=== PATIENT | female | born 1990 | race Caucasian/White ===

== ENCOUNTER 2017-02-05 00:31 | Emergency (ER) | payer MEDICAID ==
[~2017-02-05] VITALS: Ht 162.6 cm; Wt 76.0 kg
[2017-02-05 00:33] VITALS: Ht 162.6 cm; Wt 76.0 kg
--- NOTE | 2017-02-05 01:00 | ERA ---
ER Documentation Chief Complaint Date/Time DATE: 02/05/17 TIME: 01:00 Chief Complaint upper abd painx 1 week HPI The patient is a 26-year-old female, presenting to the ER because of epigastric abdominal pain for 1 week, worse with food. She was seen in the ER about 3 days ago and was discharged. She denies fever, chills, neck pain, chest pain, dyspnea, nausea, vomiting, dysuria, diarrhea, constipation She does not smoke or drink Past medical history: None Past surgical history: One ROS All systems reviewed and are negative except as per history of present illness. Allergies Allergies: Coded Allergies: No Known Drug Allergies (Verified Allergy, Unknown, 07/24/14) PMhx/Soc History of Surgery: No Anesthesia Reaction: No Hx Neurological Disorder: No Hx Respiratory Disorders: No Hx Cardiac Disorders: No Hx Psychiatric Problems: No Hx Miscellaneous Medical Probl: No Hx Alcohol Use: No Hx Substance Use: No Hx Tobacco Use: No Physical Exam Vitals Vital Signs Date Time Temp Pulse Resp B/P Pulse Ox O2 Delivery O2 Flow Rate FiO2 02/05/17 02:07 61 16 114/81 98 Room Air 02/05/17 00:33 97.4 72 20 143/72 99 Physical Exam Const: No acute distress. Head: Atraumatic. Eyes: Normal Conjunctiva. ENT: Normal External Ears, Nose and Mouth. Neck: Full range of motion. No meningismus. Resp: Clear to auscultation bilaterally. Cardio: Regular rate and rhythm. Abd: Soft, non distended, normal bowel sounds,Mild epigastric tenderness, no right lower quadrant, soft rigidity, rebound, CVA tenderness Skin: No petechiae or rashes. Back: No midline or flank tenderness. Ext: No cyanosis, or edema. Neur: Awake and alert. No focal deficit Psych: Normal Mood and Affect. Result Diagram: 02/05/173 02/05/17 0123 Results 24 hrs Laboratory Tests Test 02/05/17 01:22 02/05/17 01:23 Bedside Urine pH (LAB) 5.5 Bedside Urine Protein (LAB) Negative Bedside Urine Glucose (UA) Negative Bedside Urine Ketones (LAB) Negative Bedside Urine Blood Negative Bedside Urine Nitrite (LAB) Negative Bedside Urine Leukocyte Esterase (L Negative White Blood Count 13.010^3/ul Red Blood Count 4.0610^6/ul Hemoglobin 12.6g/dl Hematocrit 36.9% Mean Corpuscular Volume 90.9fl Mean Corpuscular Hemoglobin 31.0pg Mean Corpuscular Hemoglobin Concent 34.1g/dl Red Cell Distribution Width 11.9% Platelet Count 04723^3/UL Mean Platelet Volume 9.4fl Neutrophils % 80.6% Lymphocytes % 13.5% Monocytes % 4.8% Eosinophils % 0.4% Basophils % 0.3% Nucleated Red Blood Cells % 0.0/100WBC Neutrophils # (Manual) 10.510^3/ul Lymphocytes # 1.810^3/ul Monocytes # 0.610^3/ul Eosinophils # 0.110^3/ul Basophils # 0.010^3/ul Nucleated Red Blood Cells # 0.010^3/ul Sodium Level 141mmol/L Potassium Level 4.3mmol/L Chloride Level 100mmol/L Carbon Dioxide Level 26mmol/L Anion Gap 19 Blood Urea Nitrogen 13mg/dl Creatinine 0.76mg/dl Glucose Level 104mg/dl Calcium Level 9.5mg/dl Total Bilirubin 0.1mg/dl Direct Bilirubin 0.00mg/dl Indirect Bilirubin 0.1mg/dl Aspartate Amino Transf (AST/SGOT) 20IU/L Alanine Aminotransferase (ALT/SGPT) 32IU/L Alkaline Phosphatase 84IU/L Total Protein 8.2g/dl Albumin 4.5g/dl Globulin 3.70g/dl Albumin/Globulin Ratio 1.21 Lipase 62U/L Current Medications Medications (Trade) Dose Ordered Sig/Ashley Route PRN Reason Start Time Stop Time Status Last Admin Dose Admin Sodium Chloride (NS) 1,000 ml @ 1,000 mls/hr Q1H STAT IV 02/05/17 01:07 02/05/17 02:06 DC 02/05/17 01:32 Morphine Sulfate (morphine) 2 mg ONCE STAT IV 02/05/17 01:07 02/05/17 01:08 DC 02/05/17 01:32 Ondansetron HCl (Zofran Inj) 4 mg ONCE STAT IV 02/05/17 01:07 02/05/17 01:08 DC 02/05/17 01:32 Procedures/[place] [id number] Radiology Main Line: [phone] DIAGNOSTIC IMAGING REPORT Patient: PATRICIA SHARPE : 1990 Age: 26 Sex: F MR #: [id number] DOS: 02/05/17 0107 Ordering MD: CLARKE PONCE MD Location: E/R Room/Bed: PROCEDURE: ULTRASOUND LIMITED ABDOMEN CLINICAL INDICATION: 26-year-old female with abdominal pain. TECHNIQUE: Multiple sonographic of the right upper quadrant of the abdomen were obtained. The images were reviewed on a PACS workstation. COMPARISON: None. FINDINGS: The pancreas is partially visualized and is otherwise without abnormal echogenicity. The liver displays normal echogenicity. The liver measures 15.4 cm in length. No evidence of intrahepatic biliary ductal dilatation is seen. The portal and hepatic veins are unremarkable. The gallbladder demonstrates no wall thickening, sludge, nor stones. No pericholecystic fluid is seen. The common bile duct measures 3.1 mm and is not dilated. The right kidney displays normal echogenicity. The right kidney measures 11.8 cm in maximal length. No caliectasis or hydronephrosis is seen. No free fluid is seen. IMPRESSION: Unremarkable right upper quadrant abdominal ultrasound. .Ze Lomeli MD, MD Date Time Electronically viewed and signed by .Ze Lomeli MD, on 02/05/2017 02:52 .M/ CC: CLARKE PONCE MD MEDICAL MAKING DECISION: The patient is a 36-year-old female, presenting with epigastric abdominal pain of unclear etiology. She was treated with 1 L normal saline for clinical dehydration, morphine 2 mg IV for pain, Zofran for liquid IV for nausea with good response. The differential diagnoses considered include but are not limited to cholelithiasis, cholecystitis, cystitis, pancreatitis, hepatitis, gastritis, peptic ulcer disease, gastric ulcer, appendicitis, diverticulitis, cholangitis, choledocholithiasis, partial small bowel obstruction. Departure Diagnosis: Primary Impression: Abdominal pain Condition: Good Comments She was discharged with Tylenol and Protonix and advised to return in 8 hours for reevaluation, sooner if any concern The patient's blood pressure was elevated (>120/80) but appears stable without evidence of hypertension emergency or urgency. The patient was counseled about the risks of hypertension and urged to pursue outpatient monitoring and therapy within a week with their primary care physician. CLARKE PONCE MD Feb 05, 2017 01:00
[2017-02-05] MEDS ORDERED: morphine 2 MG INJ IV STA (01:07)
[2017-02-05] MEDS ORDERED: SOD CHLORIDE 0.9% 1,000 ML IV STA (01:07)
[2017-02-05] MEDS ORDERED: ONDANSETRON 4 MG INJ IV STA (01:07)
[2017-02-05 01:15] LABS: URINE BLOOD (Dip) POC Negative (NEGATIVE)
[2017-02-05 01:57] LABS: BASOPHILS % 0.3 % (0.0-2.0); EOSINOPHILS # 0.1 10^3/ul (0.0-0.5); EOSINOPHILS % 0.4 % (0.0-7.0); HEMATOCRIT 36.9 % (37.0-47.0); HEMOGLOBIN 12.6 g/dl (12.0-16.0); LYMPHOCYTES # 1.8 10^3/ul (0.8-2.9); LYMPHOCYTES % 13.5 % (15.0-51.0); MEAN CORPUSCULAR HGB CONC 34.1 g/dl (32.0-37.0); MEAN CORPUSCULAR VOLUME 90.9 fl (82.0-101.0); MEAN PLATELET VOLUME 9.4 fl (7.4-10.4); MONOCYTE # 0.6 10^3/ul (0.3-0.9); MONOCYTES % 4.8 % (0.0-11.0); NEUTROPHILS % 80.6 % (39.0-77.0); PLATELET COUNT 311 10^3/UL (140-415); RED BLOOD COUNT 4.06 10^6/ul (4.20-5.40); RED CELL DISTRIBUTION WIDTH 11.9 % (11.5-14.5)
[2017-02-05 02:04] LABS: ALBUMIN 4.5 g/dl (3.3-4.9); ALBUMIN/GLOBULIN RATIO 1.21; BILIRUBIN,INDIRECT 0.1 mg/dl (0-1.1); BILIRUBIN,TOTAL 0.1 mg/dl (0.2-1.3); CALCIUM 9.5 mg/dl (8.4-10.2); CREATININE 0.76 mg/dl (0.44-1.00); POTASSIUM 4.3 mmol/L (3.5-5.1); TOTAL PROTEIN 8.2 g/dl (6.1-8.1)
--- NOTE | 2017-02-05 02:53 | RADRPT ---
PROCEDURE: ULTRASOUND LIMITED ABDOMEN CLINICAL INDICATION: 26-year-old female with abdominal pain. TECHNIQUE: Multiple sonographic of the right upper quadrant of the abdomen were obtained. The imag es were reviewed on a PACS workstation. COMPARISON: None. FINDINGS: The pancreas is partially visualized and is otherwise without abnormal echogenicity. The liver displays normal echogenicity. The liver measures 15.4 cm in length. No evidence of intrah epatic biliary ductal dilatation is seen. The portal and hepatic veins are unremarkable. The gallbladder demonstrates no wall thickening, sludge, nor stones. No pericholecystic fluid is see n. The common bile duct measures 3.1 mm and is not dilated. The right kidney displays normal echogenicity. The right kidney measures 11.8 cm in maximal length. No caliectasis or hydronephrosis is seen. No free fluid is seen. IMPRESSION: Unremarkable right upper quadrant abdominal ultrasound. .Ze Lomeli MD, MD Date Time Electronically viewed and signed by .Ze Lomeli MD, on 02/05/2017 02:52 .M/
[2017-02-05] MEDS ORDERED: PANT40TA3 PO (04:42)
[2017-02-05] MEDS ORDERED: ACET325T33 PO (04:43)
[2017-02-05 05:10] VITALS: BP 106/71; PULSE 60; RESP 17
== END 2017-02-05 05:12 | disposition home or self-care (01) ==
LOC: E/R 00:31
DX: R10.13 Epigastric pain (principal); R40.2142 Coma scale, eyes open, spontaneous, at arrival to emergency department; R40.2252 Coma scale, best verbal response, oriented, at arrival to emergency department; R40.2362 Coma scale, best motor response, obeys commands, at arrival to emergency department
CPT/HCPCS: 36415; 76705; 80053; 81003; 83690; 85025; 96374; 96375; J2270; J2405; J7030; Z7502; Z7610

== ENCOUNTER 2018-03-21 15:02 | Emergency (ER) | END 2018-03-21 17:50 | disposition home or self-care (01) ==

== ENCOUNTER 2018-05-25 12:19 | Emergency (ER) | END 2018-05-25 15:39 | disposition home or self-care (01) ==

== ENCOUNTER 2018-05-26 09:03 | Emergency (ER) | payer OTHER ==
[~2018-05-26] VITALS: Ht 167.6 cm; Wt 76.5 kg
[~2018-05-26 09:03] MED LIST: ACET325T33 PO; CEPH-443 PO; PANT40TA3 PO
[2018-05-26 09:06] VITALS: Ht 167.6 cm; Wt 76.5 kg
[2018-05-26] MEDS ORDERED: ACETAMINOPHEN 325 MG TAB PO STA (09:29)
[2018-05-26] MEDS ORDERED: SOD CHLORIDE 0.9% 1,000 ML IV ONE (09:30)
[2018-05-26 13:25] VITALS: BP 110/72; PULSE 63; RESP 16
--- NOTE | 2018-05-26 18:10 | ERD ---
ER Documentation Chief Complaint Chief Complaint pt bib self with c/o vag bleed preg, seen here yesterday for same, HPI 27-year-old female patient with no significant past medical history presents to ED for vaginal bleeding. Patient reports that she is currently having a miscarriage. Patient reports that she started to pass clots, vaginal tissue. Reports that her last menstruation was on February 24, 2018. Denies any abdominal trauma. Denies any fever, chills, nausea, vomiting, diarrhea, neck stiffness. ROS All systems reviewed and are negative except as per history of present illness. Medications Home Meds Active Scripts Cephalexin* (Keflex*) 500 Mg Capsule, 500 MG PO BID for 7 Days, CAP Prov:JUN VILLALTA PA-C 03/21/18 Acetaminophen* (Tylenol*) 325 Mg Tablet, 650 MG PO Q6H PRN for PAIN AND OR ELEVATED TEMP, #20 TAB Prov:CLARKE PONCE MD 02/05/17 Pantoprazole* (Protonix*) 40 Mg Tablet.dr, 40 MG PO DAILY, #20 TAB Prov:CLARKE PONCE MD 02/05/17 Allergies Allergies: Coded Allergies: No Known Drug Allergies (Verified Allergy, Unknown, 05/26/18) PMhx/Soc History of Surgery: Yes () Anesthesia Reaction: No Hx Neurological Disorder: No Hx Respiratory Disorders: No Hx Cardiac Disorders: No Hx Psychiatric Problems: No Hx Miscellaneous Medical Probl: Yes (gastritis) Hx Alcohol Use: No Hx Substance Use: No Hx Tobacco Use: No Smoking Status: Never smoker FmHx Family History: No diabetes, No coronary disease Physical Exam Vitals Vital Signs Date Temp Pulse Resp B/P (MAP) Pulse Ox O2 O2 Flow FiO2 Time Delivery Rate 05/26/18 97.8 63 16 110/72 100 Room Air 13:25 (85) 05/26/18 97.4 71 16 114/80 100 09:06 (91) Physical Exam Const: Ozu-fvm-[id number], well-nourished. In no acute distress. Head: Atraumatic, normocephalic Eyes: Normal Conjunctiva without injection. No purulent discharge. ENT: Normal external ear, nose. Moist oropharynx without tonsillar exudates. Non-erythematous pharynx. Uvula midline. No drooling. No trismus. Neck: No cervical midline tenderness. Full range of motion. No meningismus. No cervical lymphadenopathy. No JVD. Resp: Clear to auscultation bilaterally. No wheezing, rhonchi, rales, or crackles. No accessory muscle use. No retractions. Cardio: Regular rate and rhythm. No murmurs, rubs or gallops. Abd: Soft, non distended. Normal bowel sounds. No palpable masses. No rebound tenderness. No guarding. Negative McBurney's point. Negative psoas sign. Negative obturator sign. : See exam in MDM. Skin: No petechiae or rashes Back: No midline tenderness. No CVA tenderness. Ext: No cyanosis, or edema. Neur: Awake and alert. Normal gait. Normal coordination. Psych: Normal Mood and Affect Results 24 hrs Laboratory Tests Test 05/26/18 09:50 05/26/18 10:41 White Blood Count 11.8 10^3/ul Red Blood Count 4.02 10^6/ul Hemoglobin 12.4 g/dl Hematocrit 36.5 % Mean Corpuscular Volume 90.8 fl Mean Corpuscular Hemoglobin 30.8 pg Mean Corpuscular Hemoglobin Concent 34.0 g/dl Red Cell Distribution Width 11.7 % Platelet Count 310 10^3/UL Mean Platelet Volume 9.4 fl Immature Granulocytes % 0.300 % Neutrophils % 75.3 % Lymphocytes % 17.9 % Monocytes % 5.2 % Eosinophils % 1.1 % Basophils % 0.2 % Nucleated Red Blood Cells % 0.0 /100WBC Immature Granulocytes # 0.040 10^3/ul Neutrophils # 8.9 10^3/ul Lymphocytes # 2.1 10^3/ul Monocytes # 0.6 10^3/ul Eosinophils # 0.1 10^3/ul Basophils # 0.0 10^3/ul Nucleated Red Blood Cells # 0.0 10^3/ul Beta HCG, Quantitative 1697.5 mIU/ml Urine Color RED Urine Clarity BLOODY Urine pH 5.0 Urine Specific Pratt 1.010 Urine Ketones 3+ mg/dL Urine Nitrite NEGATIVE mg/dL Urine Bilirubin TRACE (Tr) mg/dL Urine Urobilinogen 4.0 E.U./dL mg/dL Urine Leukocyte Esterase NEGATIVE Trae/ul Urine Microscopic RBC >200 /HPF Urine Microscopic WBC 2-5 /HPF Urine Squamous Epithelial Cells RARE /HPF Urine Bacteria FEW /HPF Urine Mucus FEW /HPF Urine Hemoglobin 3+ mg/dL Urine Glucose NEGATIVE mg/dL Urine Total Protein NEGATIVE mg/dl Current Medications Medications Dose Sig/Ashley Start Time Status Last (Trade) Ordered Route PRN Stop Time Admin Dose Reason Admin 650 mg ONCE STAT 05/26/18 DC 05/26/18 Acetaminophen PO 09:29 09:51 (Tylenol 05/26/18 Tab) 09:30 Sodium 1,000 ml @ Q1H ONCE 05/26/18 DC 05/26/18 Chloride 1,000 mls/hr IV 09:30 09:50 05/26/18 10:29 Procedures/MDM 27-year-old female patient with no significant past medical history is a presents to ED complaining of vaginal bleeding. Patient is afebrile and nontoxic-appearing. An ultrasound, beta-hCG, CBC, type and RH, UA was ordered to evaluate patient. CBC: No evidence of severe infection or anemia Urine: No elevation in nitrites, leukocyte esterase, hematuria. No evidence of UTI Rh: O positive. No indication for Rhogam at this time. beta Hc.5 PROCEDURE: US Pelvis. CLINICAL INDICATION: vaginal bleeding TECHNIQUE: Multiple sonographic images of the pelvis were obtained utilizing a transabdominal technique. The images were reviewed on a PACS workstation. COMPARISON: US PELVIS 05/25/2018 FINDINGS: The uterus is normal in size and demonstrates a normal appearance of the myometrium. The uterus measures 10.2 x 6.0 x 6.5 cm in size. The endometrial stripe is heterogeneous in appearance and has the thickness of 24 mm. There is no increased vascularity. Previously seen gestational sac is no longer visualized. The right ovary was not seen. The left ovary is normal and measures 3.4 x 2.8 x 3.0 cm. There is a 2.5 cm simple cyst in the left ovary. No free fluid is present within the pelvis.. RPTAT: AA IMPRESSION: Previous seen gestational sac is no longer visualized. Heterogeneous and thickened endometrium. The findings likely represent an in progress. Follow-up ultrasound and HCG levels is recommended. Pelvic Exam: On Air Personality present Abdomen: Nontender External Genitalia: Normal Skin Speculum: Normal vaginal mucosa, normal cervical discharge, tissue and blood clots noted. This was sent to the pathology lab. Bimanual: No adnexal masses or tenderness, No CMT. Cervix open with products of conception noted. Patient's bleeding symptoms have stabilized while in the department. Low suspicion for symptomatic anemia, ectopic , sepsis, PID, appendicitis, ovarian torsion, tubo-ovarian abscess, surgical abdomen, or other emergent conditions. Patient was educated that there is a risk for threatened . Patient to follow up with [facility] in 2 days for further evaluation and treatment. Patient is to return sooner to the ED for any worsening symptoms. Patient's questions were answered. Patient understood and agreed with discharge plan. Departure Diagnosis: Primary Impression: Vaginal bleeding in patient at less than 20 weeks ges... Condition: Stable Patient Instructions: Understanding Miscarriage: Emotions, Understanding Miscarriage: During a Miscarriage, Miscarriage Referrals: COMMUNITY CLINICS YOU HAVE RECEIVED A MEDICAL SCREENING EXAM AND THE RESULTS INDICATE THAT YOU DO NOT HAVE A CONDITION THAT REQUIRES URGENT TREATMENT IN THE EMERGENCY DEPARTMENT. FURTHER EVALUATION AND TREATMENT OF YOUR CONDITION CAN WAIT UNTIL YOU ARE SEEN IN YOUR DOCTORS OFFICE WITHIN THE NEXT 1-2 DAYS. IT IS YOUR RESPONSIBILITY TO MAKE AN APPOINTMENT FOR FOLOW-UP CARE. IF YOU HAVE A PRIMARY DOCTOR --you should call your primary doctor and schedule an appointment IF YOU DO NOT HAVE A PRIMARY DOCTOR YOU CAN CALL OUR PHYSICIAN REFERRAL HOTLINE AT IF YOU CAN NOT AFFORD TO SEE A PHYSICIAN YOU CAN CHOSE FROM THE FOLLOWING [facility] CLINICS [facility] [address] [facility]. [facility] [address] [facility] [address] [address] [facility] [address] [facility] [facility]. [address] [facility] YOU HAVE RECEIVED A MEDICAL SCREENING EXAM AND THE RESULTS INDICATE THAT YOU DO NOT HAVE A CONDITION THAT REQUIRES URGENT TREATMENT IN THE EMERGENCY DEPARTMENT. FURTHER EVALUATION AND TREATMENT OF YOUR CONDITION CAN WAIT UNTIL YOU ARE SEEN IN YOUR DOCTORS OFFICE WITHIN THE NEXT 1-2 DAYS. IT IS YOUR RESPONSIBILITY TO MAKE AN APPOINTMENT FOR FOLOW-UP CARE. IF YOU HAVE A PRIMARY DOCTOR --you should call your primary doctor and schedule and appointment IF YOU DO NOT HAVE A PRIMARY DOCTOR YOU CAN CALL OUR PHYSICIAN REFERRAL HOTLINE AT . IF YOU CAN NOT AFFORD TO SEE A PHYSICIAN YOU CAN CHOSE FROM THE FOLLOWING [facility] INSTITUTIONS: [facility] [address] [place] [address] [facility] [address] [place] [address] [facility] [address] [place] [address] [facility]/SPECIALTIES [facility] [place] [address] [facility] [address] [place] [address] OFFICE FAX , [facility] [address] [place] [address] [facility] [address] [place] [address] [address] [facility] [address] [facility] [address] [address] [address] [place] [address] [facility] [address] [place] [address] [address] [facility] [address] - [place] GARCIA [address], [facility] [address] [address] [address] [facility]. [address], [facility] [address] [address] [address] [place] [id number] [facility] Hours: 8:00 am - 5:00 pm Additional Instructions: Call your PROPOSAL SPECIALIST TOMORROW for an appointment during the next 2-3 days.See the doctor sooner or return here if your condition worsens before your appointment time. RYNE GROVER PA-C May 26, 2018 18:10
== END 2018-05-26 13:28 | disposition home or self-care (01) ==
LOC: FTE 09:03
DX: O20.9 Hemorrhage in early pregnancy, unspecified (principal); Z3A.00 Weeks of gestation of pregnancy not specified
CPT/HCPCS: 36415; 76801; 81001; 84702; 85025; 87086; 88305; 96360; J7030; Z7502; Z7610